=== PATIENT | male | born 1955 | race Caucasian/White ===

== ENCOUNTER 2020-12-01 07:16 | Day surgery (SDC) | payer MEDICARE, OTHER ==
[~2020-12-01] VITALS: Ht 180.3 cm; Wt 89.0 kg
[~2020-12-01 07:16] MED LIST: BUPIVACAINE/PF 0.5% ONE; EPINEPHRINE 1 MG/ML, 1ML ONE; HEPARIN 1,000 UNITS/ML, 10ML ONE; PAPAVERINE 30 MG/ML, 2ML ONE; THROMBIN 5,000 UNIT VIAL TP ONE
[2020-12-01] MEDS ORDERED: CHLORHEXIDINE 15 ML UDC MM STA (07:37)
[2020-12-01 07:39] VITALS: BP 161/60
[2020-12-01] MEDS ORDERED: AMLO10TA4 PO (07:56)
[2020-12-01] MEDS ORDERED: METO25TA35 PO (07:56)
[2020-12-01] MEDS ORDERED: TAMS-11 PO (07:56)
[2020-12-01] MEDS ORDERED: OMEP-110 PO (07:56)
[2020-12-01] MEDS ORDERED: PRED5TAB PO (07:56)
[2020-12-01] MEDS ORDERED: BUME1TAB21 PO (07:56)
[2020-12-01] MEDS ORDERED: CALC0.25 PO (07:56)
[2020-12-01] MEDS ORDERED: ATOR10TA PO (07:56)
[2020-12-01] MEDS ORDERED: LISI-170 PO (07:56)
[2020-12-01] MEDS ORDERED: ASPI-515 PO (07:56)
[2020-12-01] MEDS ORDERED: MYCO250C PO (07:56)
[2020-12-01] MEDS ORDERED: TACR1CAP5 PO (07:56)
[2020-12-01] MEDS ORDERED: ALLO100T30 PO (07:56)
[2020-12-01] MEDS ORDERED: CLOP75TA PO (07:56)
[2020-12-01] MEDS ORDERED: SODIUM CHLORIDE 0.9% 1,000 ML IV SCH (08:00)
[2020-12-01] MEDS ORDERED: PROPOFOL 10 MG/ML, 20ML ONE (08:13)
[2020-12-01] MEDS ORDERED: ROCURONIUM 10MG/ML,5ML ONE (08:13)
[2020-12-01] MEDS ORDERED: DEXAMETHASONE 4 MG/ML, 5ML ONE (08:13)
[2020-12-01] MEDS ORDERED: GLYCOPYRROLATE 0.2MG/1ML, 5ML ONE (08:13)
[2020-12-01] MEDS ORDERED: LIDOCAINE-MPF 2% ,5ML ONE (08:13)
[2020-12-01] MEDS ORDERED: MIDAZOLAM 1 MG/ML, 2ML ONE (08:14)
[2020-12-01] MEDS ORDERED: FENTANYL PF 250 MCG/5ML ONE (08:14)
[2020-12-01 08:23] LABS: BASOPHILS % (AUTO) 1 % (0-1); EOSINOPHILS % (AUTO) 3 % (1-7); LYMPHOCYTES % (AUTO) 22 % (22-44); MEAN CORPUSCULAR HEMOGLOBIN 28.3 pg (27.5-34.5); MEAN CORPUSCULAR HGB CONC 32.9 g/dL (33.2-36.2); MEAN PLATELET VOLUME 7.9 fL (7.4-10.4); MONOCYTES % (AUTO) 9 % (2-9); NEUTROPHILS % (AUTO) 65 % (42-75); PLATELET COUNT 209 x10^3/uL (130-400); RED BLOOD COUNT 3.75 x10^6/uL (4.38-5.82); RED CELL DISTRIBUTION WIDTH 16.3 % (9.4-14.8)
[2020-12-01 08:28] LABS: MD NO
[2020-12-01] MEDS ORDERED: EPHEDRINE 50 MG/ML, 1ML IM PRN (08:30)
[2020-12-01] MEDS ORDERED: LABETALOL 5MG/ML, 20ML IV PRN (08:30)
[2020-12-01] MEDS ORDERED: DIAZEPAM 5 MG/ML, 2ML IVPush PRN (08:30)
[2020-12-01] MEDS ORDERED: HALOPERIDOL 5 MG/ML IV PRN (08:30)
[2020-12-01] MEDS ORDERED: FENTANYL PF 100 MCG/2ML IV PRN (08:30)
[2020-12-01] MEDS ORDERED: ACETAMINOPHEN 325 MG TABLET PO PRN (08:30)
[2020-12-01] MEDS ORDERED: METHOCARBAMOL 1,000 MG in DEXTROSE 5% 100 ML IV PRN (08:30)
[2020-12-01] MEDS ORDERED: MIDAZOLAM 1 MG/ML, 2ML IV PRN (08:30)
[2020-12-01] MEDS ORDERED: ALBUTEROL SULFATE 2.5 MG/3 ML NPPB PRN (08:30)
[2020-12-01] MEDS ORDERED: OXYcodone 5 MG/5 ML ORAL.SOL UDC PO PRN (08:30)
[2020-12-01] MEDS ORDERED: EPHEDRINE 50 MG/ML, 1ML IVPush PRN (08:30)
[2020-12-01] MEDS ORDERED: DIPHENHYDRAMINE 50 MG/ML, 1ML IM PRN (08:30)
[2020-12-01] MEDS ORDERED: ONDANSETRON 2MG/ML, 2ML IVPush PRN (08:30)
[2020-12-01] MEDS ORDERED: HYDROcodone/APAP 7.5-325MG/15ML UDC PO PRN (08:30)
[2020-12-01] MEDS ORDERED: hydrALAzine 20 MG/ML, 1ML IV PRN (08:30)
[2020-12-01] MEDS ORDERED: LORazepam 2 MG/ML, 1ML IVPush PRN (08:30)
[2020-12-01] MEDS ORDERED: METOCLOPRAMIDE 5 MG/ML, 2ML IVPush PRN (08:30)
[2020-12-01 08:37] LABS: ALANINE AMINOTRANSFERASE 17 U/L (12-78); ALBUMIN 3.5 g/dL (3.4-5.0); ANION GAP 9 mmol/L (5-15); CALCIUM 9.4 mg/dL (8.5-10.1); CHLORIDE 110 mmol/L (98-107); CREATININE 3.58 mg/dL (0.7-1.3)
[2020-12-01 08:40] LABS: ALKALINE PHOSPHATASE 91 U/L (45-117); BILIRUBIN,TOTAL 0.4 mg/dL (0.2-1.0); TOTAL PROTEIN 6.8 g/dL (6.4-8.2)
[2020-12-01] MEDS ORDERED: CEFAZOLIN 1,000 MG ONE (09:30)
[2020-12-01] MEDS ORDERED: HEPARIN 1,000 UNITS/ML, 10ML IV ONE (09:51)
[2020-12-01] MEDS ORDERED: BUPIVACAINE/PF-EPI 0.5% 1:200K INFIL ONE (09:51)
== END 2020-12-01 13:30 | disposition home or self-care (01) ==
LOC: OUT 07:16
PROVIDERS: ATTEND Surgery
DX: T82.898A Other specified complication of vascular prosthetic devices, implants and grafts, initial encounter (principal); Z94.0 Kidney transplant status; I70.213 Atherosclerosis of native arteries of extremities with intermittent claudication, bilateral legs; K21.9 Gastro-esophageal reflux disease without esophagitis; N18.6 End stage renal disease; M10.9 Gout, unspecified; I12.0 Hypertensive chronic kidney disease with stage 5 chronic kidney disease or end stage renal disease; F17.210 Nicotine dependence, cigarettes, uncomplicated; Y83.8 Other surgical procedures as the cause of abnormal reaction of the patient, or of later complication, without mention of misadventure at the time of the procedure; Z72.89 Other problems related to lifestyle; Z20.822 Contact with and (suspected) exposure to COVID-19; Z79.899 Other long term (current) drug therapy; Z98.890 Other specified postprocedural states
CPT/HCPCS: 36415; 37607; 71045; 80053; 85025; 87635; 93005; J0171; J0690; J1100; J1644; J2250; J2704; J3010; J2440

== ENCOUNTER → 2021-08-11 | Outpatient (CLI) | payer MEDICARE, OTHER ==
[~2021-08-11] MED LIST changes: +ALLO100T30 PO; +AMLO10TA4 PO; +AMOX-367 PO; +ASPI-963 PO; +ATOR10TA PO; +BUME1TAB21 PO; -BUPIVACAINE/PF 0.5% ONE; +CALC0.25 PO; +CLOP75TA PO; -EPINEPHRINE 1 MG/ML, 1ML ONE; -HEPARIN 1,000 UNITS/ML, 10ML ONE; +HYDR-2214 PO; +LISI-170 PO; +METO25TA35 PO; +MYCO250C PO; +OMEP-110 PO; -PAPAVERINE 30 MG/ML, 2ML ONE; +PRED5TAB PO; +TACR1CAP5 PO; +TAMS-11 PO; -THROMBIN 5,000 UNIT VIAL TP ONE; +[UNRECOGNIZED DRUG - OTHER] PO
[2021-08-11 10:37] LABS: BASOPHILS % (AUTO) 1 % (0-1); EOSINOPHILS % (AUTO) 2 % (1-7); LYMPHOCYTES % (AUTO) 15 % (22-44); MEAN CORPUSCULAR HEMOGLOBIN 27.5 pg (27.5-34.5); MEAN CORPUSCULAR HGB CONC 32.4 g/dL (33.2-36.2); MEAN PLATELET VOLUME 8.6 fL (7.4-10.4); MONOCYTES % (AUTO) 7 % (2-9); NEUTROPHILS % (AUTO) 76 % (42-75); PLATELET COUNT 222 x10^3/uL (130-400); RED BLOOD COUNT 3.74 x10^6/uL (4.38-5.82); RED CELL DISTRIBUTION WIDTH 16.9 % (9.4-14.8)
[2021-08-11 10:47] LABS: ALANINE AMINOTRANSFERASE 23 U/L (12-78); ALBUMIN 2.6 g/dL (3.4-5.0); ANION GAP 8 mmol/L (5-15); CALCIUM 9.5 mg/dL (8.5-10.1); CHLORIDE 108 mmol/L (98-107); CREATININE 2.45 mg/dL (0.7-1.3)
[2021-08-11 10:48] LABS: INTERNATIONAL NORMALIZED RATIO 1.04 (0.93-1.1); PROTHROMBIN TIME 11.1 Seconds (9.6-11.5)
[2021-08-11 10:49] LABS: ALKALINE PHOSPHATASE 105 U/L (45-117); BILIRUBIN,TOTAL 0.4 mg/dL (0.2-1.0); TOTAL PROTEIN 6.6 g/dL (6.4-8.2)
== END | disposition home or self-care (01) ==
LOC: STAR 09:12
PROVIDERS: ATTEND Surgery
DX: Z01.812 Encounter for preprocedural laboratory examination (principal); Z20.822 Contact with and (suspected) exposure to COVID-19
CPT/HCPCS: 36415; 71046; 80053; 85025; 85610; 85730; 87635; 93005

== ENCOUNTER 2021-08-16 07:56 | Day surgery (SDC) | payer MEDICARE, OTHER ==
[~2021-08-16] VITALS: Ht 180.3 cm; Wt 85.0 kg
[2021-08-16 08:33] VITALS: BP 197/95
== END 2021-08-16 15:50 | disposition home or self-care (01) ==
LOC: OUT 07:56
PROVIDERS: ATTEND Surgery
DX: I12.0 Hypertensive chronic kidney disease with stage 5 chronic kidney disease or end stage renal disease (principal); N18.5 Chronic kidney disease, stage 5; I70.235 Atherosclerosis of native arteries of right leg with ulceration of other part of foot; L97.519 Non-pressure chronic ulcer of other part of right foot with unspecified severity; I70.261 Atherosclerosis of native arteries of extremities with gangrene, right leg; I70.212 Atherosclerosis of native arteries of extremities with intermittent claudication, left leg; E78.5 Hyperlipidemia, unspecified; I25.2 Old myocardial infarction; K21.9 Gastro-esophageal reflux disease without esophagitis; M54.12 Radiculopathy, cervical region; F17.210 Nicotine dependence, cigarettes, uncomplicated; Z79.82 Long term (current) use of aspirin; Z79.891 Long term (current) use of opiate analgesic; Z79.899 Other long term (current) drug therapy; Z88.8 Allergy status to other drugs, medicaments and biological substances; Z94.0 Kidney transplant status; Z98.890 Other specified postprocedural states
CPT/HCPCS: 28825; 36830; 87070; 87075; 87077; 87186; 87205; 88305; C1768; J0171; J1644; J2720; J7030